=== PATIENT | female | born 1980 | race African-American/Black ===

== ENCOUNTER 2016-10-16 20:45 | Emergency (ER) | payer MEDICAID, OTHER ==
[~2016-10-16] VITALS: Ht 162.6 cm; Wt 95.5 kg
[~2016-10-16 20:45] MED LIST: CYCL-36 PO; IBUP800T23 PO; NAPR-576 PO
[2016-10-16 20:47] VITALS: BP 180/103; PULSE 106; RESP 16; TEMP 99.1; O2SAT 99
[2016-10-16 21:14] VITALS: BP 161/92; PULSE 98; RESP 22; TEMP 99.5; O2SAT 98
[2016-10-16 21:43] LABS: BACTERIA, URINE RARE /hpf; BLOOD, URINE TRACE (NEG); COMMENT (UR) CULT NOT INDICATED; CULTURE IF INDICATED CULT NOT INDICATED; GLUCOSE,URINE NEG (NEG); KETONE, URINE NEG (NEG); MUCUS URINE FEW /lpf (OCC); NITRITE,URINE NEG (NEG); SQUAMOUS EPITHELIAL CELL URINE 11 /hpf (0-5); URINE COLOR YELLOW (YELLW/STRAW)
[2016-10-16] MEDS ORDERED: KETOROLAC TROMETHAMINE 30 MG/ML (IVP) VIAL IVP ONE ×2 (21:45→23:15)
[2016-10-16] MEDS ORDERED: ONDANSETRON HCL 4 MG/2 ML VIAL IVP ONE (21:45)
[2016-10-16] MEDS ORDERED: MORPHINE SULFATE 4 MG/ML INJ IV PUSH ONE (21:45)
--- NOTE | 2016-10-16 22:02 | PD ---
HPI Chief Complaint: Flank/Kidney Pain Time Seen by Provider: 21:36 Travel History International Travel<30 days: No Contact w/Intl Traveler<30days: No Traveled to known affect area: No History of Present Illness HPI 36-year-old obese female here with complaint of left-sided flank pain since this morning. Pain radiates into the left abdomen. She denies any urinary symptoms or history of ureterolithiasis. States that she's had a history of gallstones and has had a cholecystectomy. She notes some nausea but no vomiting. Does not believe she could be . No abnormal vaginal bleeding or discharge. No fevers or chills. Bowel movements have been regular. PFSH Past Medical History Anemia: Yes Diminished Hearing: No Gastrointestinal Disorders: No Hypertension: Yes (WITH ) ?: Not LMP: 09/20/16 : 3 Para: 4 Tubal Ligation: Yes Past Surgical History Abdominal Surgery: Yes (gallbladder 1999) Section: Yes Cholecystectomy: Yes Gynecologic Surgery: Yes (c section 10/05/05) Social History Alcohol Use: Yes (OCC) Tobacco Use: No Substance Use: Yes (MARIJUANA OCC) Allergies-Medications (Allergen,Severity, Reaction): Coded Allergies: No Known Allergies (Verified , 10/16/16) Reported Meds & Prescriptions Reported Meds & Active Scripts Active Ibuprofen 800 Mg Tab 800 Mg PO Q6H PRN Flexeril (Cyclobenzaprine HCl) 10 Mg Tab 10 Mg PO Q8HR PRN Naproxen 500 Mg Tab 500 Mg PO BID 10 Days Review of Systems Except as stated in HPI: all other systems reviewed are Neg Physical Exam Narrative GENERAL: Well-appearing female in no acute distress SKIN: Warm and dry. HEAD: Normocephalic. EYES: No scleral icterus. No injection or drainage. ENT: Mucous membranes pink and moist. NECK: Supple CARDIOVASCULAR: Regular rate and rhythm. No murmur appreciated. RESPIRATORY: No accessory muscle use. Clear to auscultation. Breath sounds equal bilaterally. GASTROINTESTINAL: Abdomen soft, left mid and left upper quadrant abdominal pain without rebound or guarding, nondistended. No reproducible CVA tenderness. Obese MUSCULOSKELETAL: Normal gait NEUROLOGICAL: Awake and alert. Normal speech. PSYCHIATRIC: Appropriate mood and affect; insight and judgment normal. Data Data Last Documented VS Vital Signs Date Time Temp Pulse Resp B/P Pulse Ox O2 Delivery O2 Flow Rate FiO2 10/16/16 23:30 77 20 146/85 97 Room Air 10/16/16 21:14 99.5 Orders Urinalysis - C+S If Indicated (10/16/16 21:21) Complete Blood Count With Diff (10/16/16 21:38) Comprehensive Metabolic Panel (10/16/16 21:38) Lipase (10/16/16 21:38) Ct Abd/Pel W/O Iv Contrast (10/16/16 21:38) Iv Access Insert/Monitor (10/16/16 21:38) Oximetry (10/16/16 21:38) Morphine Inj (Morphine Inj) (10/16/16 21:45) Ondansetron Inj (Zofran Inj) (10/16/16 21:45) Sodium Chloride 0.9% Flush (Ns Flush) (10/16/16 21:45) Ketorolac Inj (Toradol Inj) (10/16/16 21:45) Ketorolac Inj (Toradol Inj) (10/16/16 23:15) Al-Mag Hy-Si 40-40-4 Mg/Ml Liq (Mag-Al P (10/16/16 23:15) Lidocaine 2% Viscous (Xylocaine 2% Visco (10/16/16 23:15) Labs Laboratory Tests Test 10/16/16 10/16/16 21:29 22:00 Urine Color YELLOW Urine Turbidity HAZY Urine pH 7.0 Urine Specific [place] 1.026 Urine Protein TRACE mg/dL Urine Glucose (UA) NEG mg/dL Urine Ketones NEG mg/dL Urine Occult Blood TRACE Urine Nitrite NEG Urine Bilirubin NEG Urine Urobilinogen 2.0 MG/DL Urine Leukocyte Esterase MOD Urine RBC 7 /hpf Urine WBC 7 /hpf Urine Squamous Epithelial 11 /hpf Cells Urine Bacteria RARE /hpf Urine Mucus FEW /lpf Microscopic Urinalysis Comment CULT NOT INDICATED White Blood Count 4.6 TH/MM3 Red Blood Count 3.94 MIL/MM3 Hemoglobin 11.6 GM/DL Hematocrit 35.1 % Mean Corpuscular Volume 88.9 FL Mean Corpuscular Hemoglobin 29.4 PG Mean Corpuscular Hemoglobin 33.1 % Concent Red Cell Distribution Width 13.5 % Platelet Count 214 TH/MM3 Mean Platelet Volume 8.4 FL Neutrophils (%) (Auto) 57.7 % Lymphocytes (%) (Auto) 25.9 % Monocytes (%) (Auto) 14.9 % Eosinophils (%) (Auto) 0.9 % Basophils (%) (Auto) 0.6 % Neutrophils # (Auto) 2.7 TH/MM3 Lymphocytes # (Auto) 1.2 TH/MM3 Monocytes # (Auto) 0.7 TH/MM3 Eosinophils # (Auto) 0.0 TH/MM3 Basophils # (Auto) 0.0 TH/MM3 CBC Comment DIFF FINAL Differential Comment Sodium Level 137 MEQ/L Potassium Level 4.4 MEQ/L Chloride Level 103 MEQ/L Carbon Dioxide Level 27.6 MEQ/L Anion Gap 6 MEQ/L Blood Urea Nitrogen 9 MG/DL Creatinine 0.81 MG/DL Estimat Glomerular Filtration 96 ML/MIN Rate Random Glucose 88 MG/DL Calcium Level 8.3 MG/DL Total Bilirubin 0.2 MG/DL Aspartate Amino Transf 18 U/L (AST/SGOT) Alanine Aminotransferase 19 U/L (ALT/SGPT) Alkaline Phosphatase 75 U/L Total Protein 8.1 GM/DL Albumin 3.2 GM/DL Lipase 96 U/L [facility] Medical Decision Making Medical Screen Exam Complete: Yes Emergency Medical Condition: Yes Medical Record Reviewed: Yes Differential Diagnosis 36-year-old female with abdominal pain 1 day, most notably in the left mid and left upper quadrant on exam. Differential includes gastritis, pancreatitis, UTI , ureterolithiasis, bowel obstruction and less likely diverticulitis. Narrative Course Patient placed on monitor, IV established and blood obtained. Patient given morphine, Zofran, Toradol. CBC, CMP, lipase, urinalysis and CT of the abdomen and pelvis notable for moderate leukocyte esterase with 7 red cells, 7 white cells and rare bacteria. CT abdomen and pelvis negative. We will treat for possible UTI while we are awaiting culture given her symptoms. Diagnosis Primary Impression: UTI (urinary tract infection) Qualified Code: N30.00 - Acute cystitis without hematuria Additional Impression: Left lateral abdominal pain Referrals: Primary Care Physician as needed Additional Instructions: Finish antibiotics prescribed. Follow-up with primary care provider if symptoms persist. Med/Other Pt SpecificInfo: Prescription(s) given Scripts Nitrofurantoin Monohydrate Macrocrystals (Macrobid)100 Mg Oql433 Mg PO BID 7 Days Ref 0 Prov:Casi Caicedo MD 10/16/16 Disposition: 01 DISCHARGE HOME Condition: Stable Casi Caicedo MD Oct 16, 2016 22:02
[2016-10-16 22:23] LABS: AUTOMATED NEUTROPHIL # 2.7 TH/MM3 (1.8-7.7); BASOPHIL % 0.6 % (0.0-2.0); EOSINOPHIL % 0.9 % (0.0-4.0); HEMATOCRIT 35.1 % (35.0-46.0); HEMO FLAGS DIFF FINAL; LYMPH % 25.9 % (9.0-44.0); LYMPHOCYTE # 1.2 TH/MM3 (1.0-4.8); MEAN CELL VOLUME 88.9 FL (80.0-100.0); MEAN CORPUSCULAR HEMOGLOBIN 29.4 PG (27.0-34.0); MEAN CORPUSCULAR HGB CONC 33.1 % (32.0-36.0); MONO % 14.9 % (0.0-8.0); NEUT % 57.7 % (16.0-70.0); PLATELET COUNT 214 TH/MM3 (150-450); RED BLOOD COUNT 3.94 MIL/MM3 (4.00-5.30); RED CELL DISTRIBUTION WIDTH 13.5 % (11.6-17.2); WHITE BLOOD COUNT 4.6 TH/MM3 (4.0-11.0)
[2016-10-16] MEDS: SODIUM CHLORIDE 0.9% FLUSH 5 ML FLUSH IVF PRN ×2 (22:27→23:28)
--- NOTE | 2016-10-16 22:49 | RADRPT ---
EXAM DATE/TIME: 10/16/2016 22:27 [facility] COMPARISON: No previous studies available for comparison. INDICATIONS : Left flank pain starting today. ORAL CONTRAST: No oral contrast ingested. RADIATION DOSE: 14.20 CTDIvol (mGy) MEDICAL HISTORY : Hypertension. SURGICAL HISTORY : Tubal ligation. section. Cholecystectomy. ENCOUNTER: Initial ACUITY: 1 day PAIN SCALE: 7/10 LOCATION: Left flank TECHNIQUE: Volumetric scanning of the abdomen and pelvis was performed. Using automated exposure control and ad justment of the mA and/or kV according to patient size, radiation dose was kept as low as reasonably achievable to obtain optimal diagnostic quality images. FINDINGS: The lung bases are clear. The portion of the liver and spleen identified are free of focal defects. Surgical clips are seen in the gallbladder fossa. Pancreas, spleen and adrenal glands are unremarkable. RIGHT KIDNEY: There are no calcifications in the right kidney. LEFT KIDNEY: There are no calcifications in the left kidney. In the pelvis, uterus and adnexal regions are unremarkable. There are phleboliths in the pelvis. Abdominal wall is intact. There is no free fluid or free air. CONCLUSION: 1. I do not see evidence for a renal stone. 2. There is no perinephric stranding. 3. Lack of intravenous contrast makes detection of pyelonephritis difficult. Billy Irvin MD FACR on October 16, 2016 at 22:42 Board Certified Radiologist. This report was verified electronically.
[2016-10-16 22:53] LABS: ALKALINE PHOSPHATASE 75 U/L (45-117); TOTAL BILIRUBIN ADULT 0.2 MG/DL (0.2-1.0)
[2016-10-16] MEDS ORDERED: LIDOCAINE VISCOUS 2% SOLN 15 ML UDC PO ONE (23:15)
[2016-10-16] MEDS ORDERED: ALUMINUM/MAGNESIUM/SIMETH 30 ML CUP PO ONE (23:15)
[2016-10-16 23:30] VITALS: BP 146/85; PULSE 77; RESP 20; O2SAT 97
[2016-10-16 23:46] LABS: ALT (GPT) 19 U/L (10-53); ANION GAP 6 MEQ/L (5-15); AST (GOT) 18 U/L (15-37); BICARBONATE 27.6 MEQ/L (21.0-32.0); BLOOD UREA NITROGEN 9 MG/DL (7-18); CHLORIDE 103 MEQ/L (98-107); GLOMERULAR FILTRATION RATE 96 ML/MIN (>89); POTASSIUM 4.4 MEQ/L (3.5-5.1); SODIUM (NA) 137 MEQ/L (136-145)
[2016-10-16] MEDS ORDERED: MACR100C2 PO (23:52)
== END 2016-10-17 00:08 | disposition home or self-care (01) ==
LOC: NEPE 20:45
DX: N30.00 Acute cystitis without hematuria (principal)
CPT/HCPCS: 74176; 80053; 81001; 83690; 85025; 96374; 96375; 96376; 99284; J1885; J2270; J2405

== ENCOUNTER 2016-12-19 14:16 | Emergency (ER) | payer OTHER, MEDICAID ==
[~2016-12-19] VITALS: Ht 165.1 cm; Wt 105.0 kg
[~2016-12-19 14:16] MED LIST changes: +MACR100C2 PO
[2016-12-19 14:20] VITALS: BP 138/77; PULSE 77; RESP 18; TEMP 98.1; O2SAT 99
--- NOTE | 2016-12-19 15:29 | PD ---
HPI . acute on chronic knee pain Chief Complaint: Pain: Acute or Chronic Time Seen by Provider: 15:29 Travel History International Travel<30 days: No Contact w/Intl Traveler<30days: No Traveled to known affect area: No History of Present Illness HPI 36 yr old female here with c/o left knee pain. Patient tells me this is new pain that she has not had before. She says the pain in all over her knee and is a 10/10 without radiation. She has been trying ibuprofen without relief, but has not taken tylenol. She says she is in between PCP and decided to come to ED as she never received a dx of what was going on with her knee. Upon reviewing her records, xray was done less than a year ago. This is acute on chronic knee pain. We discussed and she tells me that she was supposed to have an MRI done, but there was some mix up and she never had it done. She is hoping to get it done. She does have a new PCP but has to establish. She denies any trauma to the area. She denies any other symptoms. PFSH Past Medical History Anemia: Yes Diminished Hearing: No Gastrointestinal Disorders: No Hypertension: Yes Tetanus Vaccination: < 5 Years Influenza Vaccination: No ?: Not LMP: 12/2016 : 3 Para: 4 Tubal Ligation: Yes Past Surgical History Abdominal Surgery: Yes (gallbladder 2000) Section: Yes Cholecystectomy: Yes Gynecologic Surgery: Yes (c section 10/05/05) Social History Alcohol Use: Yes (OCC) Tobacco Use: No Substance Use: Yes (MARIJUANA OCC) Allergies-Medications (Allergen,Severity, Reaction): Coded Allergies: No Known Allergies (Verified , 12/19/16) Reported Meds & Prescriptions Reported Meds & Active Scripts Active No Active Prescriptions or Reported Medications Review of Systems General / Constitutional: No: Fever Eyes: No: Visual changes HENT: No: Headaches Cardiovascular: No: Chest Pain or Discomfort Respiratory: No: Shortness of Breath Gastrointestinal: No: Abdominal Pain Genitourinary: No: Dysuria Musculoskeletal: Positive: Pain (left knee pain) Skin: No Rash Neurologic: No: Weakness Psychiatric: No: Depression Endocrine: No: Polydipsia Hematologic/Lymphatic: No: Easy Bruising Physical Exam Narrative GENERAL: AAO x 3, no acute distress, Well-nourished, well-developed patient. SKIN: Warm and dry. No visible rashes or bruising. HEAD: Normocephalic and atraumatic. EYES: No scleral icterus. No injection or drainage. EOM intact, PERRLA ENT: No nasal drainage noted. Mucous membranes pink. Airway patent. NECK: Supple, trachea midline. No JVD. CARDIOVASCULAR: Regular rate and rhythm without murmurs, gallops, or rubs. RESPIRATORY: Breath sounds equal bilaterally. No accessory muscle use. No rhonchi or rales. GASTROINTESTINAL: Abdomen soft, non-tender, nondistended. EXTREMITIES: No cyanosis or edema. had to assess for edema due to body size, but both knees are symmetrical.NO effusion seen. No patellar dislocation. No joint laxity. Ext/flex is normal. BACK: Nontender without obvious deformity. No CVA tenderness. PSYCH: AAO x 3, normal affect. Data Data Last Documented VS Vital Signs Date Time Temp Pulse Resp B/P Pulse Ox O2 Delivery O2 Flow Rate FiO2 12/19/16 14:20 98.1 77 18 138/77 99 MDM Medical Decision Making Medical Screen Exam Complete: Yes Emergency Medical Condition: Yes Medical Record Reviewed: Yes Differential Diagnosis acute on chronic knee pain (left), internal derangement of the knee, less likely acute fracture or trauma Narrative Course 36 yr old female here with c/o left knee pain. Patient tells me this is new pain that she has not had before. She says the pain in all over her knee and is a 10/10 without radiation. She has been trying ibuprofen without relief, but has not taken tylenol. She says she is in between PCP and decided to come to ED as she never received a dx of what was going on with her knee. Upon reviewing her records, xray was done less than a year ago. This is acute on chronic knee pain. We discussed and she tells me that she was supposed to have an MRI done, but there was some mix up and she never had it done. She is hoping to get it done. She does have a new PCP but has to establish. She denies any trauma to the area. She denies any other symptoms. Patient seen and examined. There are no acute findings. I do not suspect dislocation or fracture. She is ambulatory. Discussed that she will need to f/u with PCP to get MRI and workup completed. Explained that she may need ortho referral, which will come from PCP. She was understanding and thanked me for her care. Diagnosis Primary Impression: Knee pain, left Qualified Code: M25.562 - Chronic pain of left knee Patient Instructions: General Instructions Additional Instructions: Please return to emergency department if your symptoms return or worsen. Follow up with your primary care provider. Continue using ibuprofen and Tylenol as needed for pain. You will need to follow-up with your primary care provider as you will need a referral to orthopedics. At that point they will determine further course of action for your care. Med/Other Pt SpecificInfo: No Change to Meds Scripts No Active Prescriptions or Reported Meds Disposition: 01 DISCHARGE HOME Condition: Stable Rosy Ravi Dec 19, 2016 15:29
== END 2016-12-19 16:02 | disposition home or self-care (01) ==
LOC: NEPB 14:16
DX: M25.562 Pain in left knee (principal); G89.29 Other chronic pain
CPT/HCPCS: 99283

== ENCOUNTER 2017-09-30 05:59 | Emergency (ER) | payer MEDICAID ==
[~2017-09-30] VITALS: Ht 162.6 cm; Wt 105.0 kg
[2017-09-30 06:01] VITALS: BP 206/88; PULSE 76; RESP 16; TEMP 98.1; O2SAT 97
[2017-09-30] MEDS ORDERED: TYLE325T PO (06:18)
[2017-09-30 06:19] VITALS: BP 185/125; PULSE 75; RESP 18; O2SAT 99
--- NOTE | 2017-09-30 06:26 | PD ---
HPI Chief Complaint: Bleeding Time Seen by Provider: 06:17 Travel History International Travel<30 days: No Contact w/Intl Traveler<30days: No Traveled to known affect area: No History of Present Illness HPI 37-year-old female complains of hematemesis and rectal bleeding. Patient states that she threw up twice this morning with bright red blood in the vomitus. Patient also noticed right red blood in his stool this morning. Patient states that she has intermittent, cramping and sharp pain for the past 2 days. Patient states the pain is diffuse over the abdomen. Patient denies any pain radiation. Patient states that she has vaginal bleeding for the past 2 weeks. Patient denies any headache. Patient denies any chest pain or shortness of breath. Patient denies any dysuria or frequency. Patient denies any back pain. Patient denies any history GI bleed in the past. PFSH Past Medical History Anemia: Yes Diminished Hearing: No Gastrointestinal Disorders: No Hypertension: Yes Kidney Stones: Yes ?: Unknown : 3 Para: 4 Tubal Ligation: Yes Past Surgical History Abdominal Surgery: Yes (gallbladder 1999) Section: Yes Cholecystectomy: Yes Gynecologic Surgery: Yes (c section 10/05/05) Social History Alcohol Use: Yes (OCC) Tobacco Use: No Substance Use: Yes (MARIJUANA OCC) Allergies-Medications (Allergen,Severity, Reaction): Coded Allergies: No Known Allergies (Verified Adverse Reaction, Unknown, 09/30/17) Reported Meds & Prescriptions Reported Meds & Active Scripts Active Reported Tylenol (Acetaminophen) 325 Mg Tab 325 Mg PO ONCE Review of Systems General / Constitutional: No: Fever Eyes: No: Visual changes HENT: No: Headaches Cardiovascular: No: Chest Pain or Discomfort Respiratory: No: Shortness of Breath Gastrointestinal: Positive: Abdominal Pain, Hematemesis, Hematochezia Genitourinary: No: Dysuria Musculoskeletal: No: Pain Skin: No Rash Neurologic: No: Weakness Psychiatric: No: Depression Endocrine: No: Polydipsia Hematologic/Lymphatic: No: Easy Bruising Physical Exam Narrative GENERAL: Well-nourished, well-developed patient. SKIN: Focused skin assessment warm/dry. HEAD: Normocephalic. EYES: No scleral icterus. No injection or drainage. NECK: Supple, trachea midline. No JVD or lymphadenopathy. CARDIOVASCULAR: Regular rate and rhythm without murmurs, gallops, or rubs. RESPIRATORY: Breath sounds equal bilaterally. No accessory muscle use. GASTROINTESTINAL: Abdomen soft, nondistended. Patient has mild tenderness on palpation mid abdomen. No rebound tenderness. No mass. Rectal exam Hemoccult positive. MUSCULOSKELETAL: No cyanosis, or edema. BACK: Nontender without obvious deformity. No CVA tenderness. Data Data Last Documented VS Vital Signs Date Time Temp Pulse Resp B/P (MAP) Pulse Ox O2 Delivery O2 Flow Rate FiO2 09/30/17 06:19 75 18 185/125 (145) 99 Room Air 09/30/17 06:01 98.1 Orders Orders Complete Blood Count With Diff (09/30/17 06:21) Comprehensive Metabolic Panel (09/30/17 06:21) Prothrombin Time / Inr (Pt) (09/30/17 06:21) Act Partial Throm Time (Ptt) (09/30/17 06:21) Lipase (09/30/17 06:21) Iv Access Insert/Monitor (09/30/17 06:21) Ecg Monitoring (09/30/17 06:21) Oximetry (09/30/17 06:21) Pantoprazole Inj (Protonix Inj) (09/30/17 06:30) Sodium Chloride 0.9% Flush (Ns Flush) (09/30/17 06:30) Ct Abd/Pel W Iv Contrast(Rout) (09/30/17 06:39) Ed Urine Pregnancytest Poc (09/30/17 06:41) MDM Medical Decision Making Medical Screen Exam Complete: Yes Emergency Medical Condition: Yes Interpretation(s) 6:41 AM. Urine test negative. Differential Diagnosis Differential diagnosis including upper GI bleed, lower GI bleed, varices bleed, gastric ulcer bleed, hemorrhoids, AV malformation, diverticulosis, diverticulitis. Narrative Course 37-year-old female with hematemesis and blood per rectum. Protonix 40 mg IV given. HemaPrompt Point of Care Internal Pos. & Neg. Controls: Passed Fecal Specimen Occult Blood: Positive Hans Ruiz MD Sep 30, 2017 06:26
[2017-09-30] MEDS ORDERED: PANTOPRAZOLE SODIUM 40 MG VIAL IVP ONE (06:30)
[2017-09-30] MEDS ORDERED: SODIUM CHLORIDE 0.9% FLUSH 10 ML FLUSH IV FLUSH PRN (06:30)
[2017-09-30 06:43] VITALS: O2SAT 97
[2017-09-30 07:10] LABS: AUTOMATED NEUTROPHIL # 2.1 TH/MM3 (1.8-7.7); BASOPHIL % 0.4 % (0.0-2.0); EOSINOPHIL # 0.1 TH/MM3 (0-0.4); EOSINOPHIL % 1.3 % (0.0-4.0); HEMATOCRIT 37.3 % (35.0-46.0); HEMOGLOBIN 12.2 GM/DL (11.6-15.3); LYMPH % 44.7 % (9.0-44.0); LYMPHOCYTE # 2.1 TH/MM3 (1.0-4.8); MEAN CELL VOLUME 89.6 FL (80.0-100.0); MEAN CORPUSCULAR HEMOGLOBIN 29.4 PG (27.0-34.0); MEAN CORPUSCULAR HGB CONC 32.8 % (32.0-36.0); MONO % 8.3 % (0.0-8.0); MONOCYTE # 0.4 TH/MM3 (0-0.9); NEUT % 45.3 % (16.0-70.0); PLATELET COUNT 293 TH/MM3 (150-450); RED BLOOD COUNT 4.16 MIL/MM3 (4.00-5.30); RED CELL DISTRIBUTION WIDTH 13.6 % (11.6-17.2); WHITE BLOOD COUNT 4.6 TH/MM3 (4.0-11.0)
[2017-09-30 07:14] LABS: PROTHROMBIN TIME - PATIENT 9.9 SEC (9.8-11.6)
[2017-09-30 07:21] LABS: ALBUMIN 3.3 GM/DL (3.4-5.0); ALT (GPT) 20 U/L (10-53); AST (GOT) 16 U/L (15-37); BICARBONATE 25.4 MEQ/L (21.0-32.0); BLOOD UREA NITROGEN 12 MG/DL (7-18); CALCIUM 8.9 MG/DL (8.5-10.1); CHLORIDE 105 MEQ/L (98-107); GLOMERULAR FILTRATION RATE 135 ML/MIN (>89); GLUCOSE,RANDOM 95 MG/DL (74-106); LIPASE 114 U/L (73-393); SODIUM (NA) 138 MEQ/L (136-145)
[2017-09-30 07:24] LABS: ALKALINE PHOSPHATASE 99 U/L (45-117); TOTAL BILIRUBIN ADULT 0.2 MG/DL (0.2-1.0); TOTAL PROTEIN 8.5 GM/DL (6.4-8.2)
[2017-09-30] MEDS ORDERED: IOHEXOL 350 MG/ML 10 ML VIAL (for RAD DIAG) IVCONTRAST ONE (07:42)
--- NOTE | 2017-09-30 07:49 | PD ---
Data Data Last Documented VS Vital Signs Date Time Temp Pulse Resp B/P (MAP) Pulse Ox O2 Delivery O2 Flow Rate FiO2 09/30/17 06:43 97 Room Air 09/30/17 06:19 75 18 09/30/17 06:01 98.1 Orders Orders Complete Blood Count With Diff (09/30/17 06:21) Comprehensive Metabolic Panel (09/30/17 06:21) Prothrombin Time / Inr (Pt) (09/30/17 06:21) Act Partial Throm Time (Ptt) (09/30/17 06:21) Lipase (09/30/17 06:21) Iv Access Insert/Monitor (09/30/17 06:21) Ecg Monitoring (09/30/17 06:21) Oximetry (09/30/17 06:21) Pantoprazole Inj (Protonix Inj) (09/30/17 06:30) Sodium Chloride 0.9% Flush (Ns Flush) (09/30/17 06:30) Ct Abd/Pel W Iv Contrast(Rout) (09/30/17 06:39) Ed Urine Pregnancytest Poc (09/30/17 06:41) Iohexol 350 Inj (Omnipaque 350 Inj) (09/30/17 07:42) Ed Discharge Order (09/30/17 08:00) Labs Laboratory Tests Test 09/30/17 06:30 White Blood Count 4.6 TH/MM3 Red Blood Count 4.16 MIL/MM3 Hemoglobin 12.2 GM/DL Hematocrit 37.3 % Mean Corpuscular Volume 89.6 FL Mean Corpuscular Hemoglobin 29.4 PG Mean Corpuscular Hemoglobin Concent 32.8 % Red Cell Distribution Width 13.6 % Platelet Count 293 TH/MM3 Mean Platelet Volume 8.0 FL Neutrophils (%) (Auto) 45.3 % Lymphocytes (%) (Auto) 44.7 % Monocytes (%) (Auto) 8.3 % Eosinophils (%) (Auto) 1.3 % Basophils (%) (Auto) 0.4 % Neutrophils # (Auto) 2.1 TH/MM3 Lymphocytes # (Auto) 2.1 TH/MM3 Monocytes # (Auto) 0.4 TH/MM3 Eosinophils # (Auto) 0.1 TH/MM3 Basophils # (Auto) 0.0 TH/MM3 CBC Comment DIFF FINAL Differential Comment Prothrombin Time 9.9 SEC Prothromb Time International Ratio 1.0 RATIO Activated Partial Thromboplast Time 25.6 SEC Blood Urea Nitrogen 12 MG/DL Creatinine 0.60 MG/DL Random Glucose 95 MG/DL Total Protein 8.5 GM/DL Albumin 3.3 GM/DL Calcium Level 8.9 MG/DL Alkaline Phosphatase 99 U/L Aspartate Amino Transf (AST/SGOT) 16 U/L Alanine Aminotransferase (ALT/SGPT) 20 U/L Total Bilirubin 0.2 MG/DL Sodium Level 138 MEQ/L Potassium Level 3.7 MEQ/L Chloride Level 105 MEQ/L Carbon Dioxide Level 25.4 MEQ/L Anion Gap 8 MEQ/L Estimat Glomerular Filtration Rate 135 ML/MIN Lipase 114 U/L MDM Medical Record Reviewed: Yes Supervised Visit with SUSHILA: No Narrative Course Please refer to the outgoing provider's note. CBC & BMP Diagram 09/30/17 06:30 Total Protein 8.5 H, Albumin 3.3 L, Calcium Level 8.9, Alkaline Phosphatase 99, Aspartate Amino Transf (AST/SGOT) 16, Alanine Aminotransferase (ALT/SGPT) 20, Total Bilirubin 0.2 Lipase is normal Last Impressions Abdomen/Pelvis CT 09/30/17 0639 Signed Impressions: Service Date/Time: Saturday, September 30, 2017 07:36 - CONCLUSION: 1. Mildly nonspecific, nonobstructive bowel gas pattern which may represent a mild ileus and/or gastroenteritis. 2. Mild to moderate hepatic steatosis. 3. Status post cholecystectomy. Hank Sarmiento MD The patient was reassessed at 8 AM and was found resting comfortably. Her belly was nontender at that point. We discussed at home care which with the patient was agreeable. Return precautions discussed. Diagnosis Primary Impression: Gastroenteritis Additional Impression: Hepatic steatosis Med/Other Pt SpecificInfo: Prescription(s) given Scripts Ondansetron Odt (Zofran Odt) 4 Mg Tab 4 MG SL Q8HR Y for Nausea/Vomiting, #10 TAB 0 Refills Prov: Jovanny Deutsch MD 09/30/17 Disposition: 01 DISCHARGE HOME Condition: Stable Jovanny Deutsch MD Sep 30, 2017 07:49
--- NOTE | 2017-09-30 07:51 | RADRPT ---
EXAM DATE/TIME: 09/30/2017 07:36 [facility] COMPARISON: CT ABDOMEN & PELVIS W/O CONTRAST, October 16, 2016, 22:27. INDICATIONS : Patient complains of hematemesis and blood in stool. IV CONTRAST: 100 cc Omnipaque 350 (iohexol) IV ORAL CONTRAST: No oral contrast ingested. RADIATION DOSE: 16.99 CTDIvol (mGy) MEDICAL HISTORY : Hypertension. Renal calculi. SURGICAL HISTORY : Cholecystectomy. Tubal ligation. ENCOUNTER: Initial ACUITY: 1 day PAIN SCALE: 7/10 LOCATION: abdomen TECHNIQUE: Volumetric scanning of the abdomen and pelvis was performed. Using automated exposure control and ad justment of the mA and/or kV according to patient size, radiation dose was kept as low as reasonably achievable to obtain optimal diagnostic quality images. DICOM format image data is available electro nically for review and comparison. FINDINGS: LOWER LUNGS: The visualized lower lungs are clear. LIVER: Homogeneous density without lesion. There is no dilation of the biliary tree. No calcified gallston es. There is mild to moderate hepatic steatosis. The patient is status post cholecystectomy. SPLEEN: Normal size without lesion. PANCREAS: Within normal limits. KIDNEYS: Normal in size and shape. There is no mass, stone or hydronephrosis. ADRENAL GLANDS: Within normal limits. VASCULAR: There is no aortic aneurysm. BOWEL/MESENTERY: No oral contrast was given limiting the sensitivity of the exam. There are several loops of nondilate d air-containing small bowel with multiple small air-fluid levels. Colon is unremarkable in appearanc e. There is no free intraperitoneal air or fluid. ABDOMINAL WALL: Within normal limits. RETROPERITONEUM: There is no lymphadenopathy. BLADDER: No wall thickening or mass. REPRODUCTIVE: Within normal limits. INGUINAL: There is no lymphadenopathy or hernia. MUSCULOSKELETAL: Within normal limits for patient age. CONCLUSION: 1. Mildly nonspecific, nonobstructive bowel gas pattern which may represent a mild ileus and/or gastr oenteritis. 2. Mild to moderate hepatic steatosis. 3. Status post cholecystectomy. Hank Sarmiento MD on September 30, 2017 at 7:47 Board Certified Radiologist. This report was verified electronically.
[2017-09-30] MEDS ORDERED: ZOFR4TAB3 SL (08:00)
== END 2017-09-30 08:47 | disposition home or self-care (01) ==
LOC: NEPC 05:59
DX: K52.9 Noninfective gastroenteritis and colitis, unspecified (principal); K76.0 Fatty (change of) liver, not elsewhere classified; D64.9 Anemia, unspecified; I10 Essential (primary) hypertension; Z87.442 Personal history of urinary calculi
CPT/HCPCS: 74177; 80053; 83690; 84703; 85025; 85610; 85730; 96374; 99285; C9113; Q9967

== ENCOUNTER 2018-03-12 16:28 | Emergency (ER) | payer MEDICAID ==
[~2018-03-12] VITALS: Ht 165.1 cm; Wt 95.5 kg
[~2018-03-12 16:28] MED LIST changes: -CYCL-36 PO; -IBUP800T23 PO; -MACR100C2 PO; -NAPR-576 PO; +TYLE325T PO; +ZOFR4TAB3 SL
[2018-03-12 16:29] VITALS: BP 170/84; PULSE 83; RESP 18; TEMP 98.2; O2SAT 100
--- NOTE | 2018-03-12 16:36 | PD ---
HPI Chief Complaint: Injury Time Seen by Provider: 16:35 Travel History International Travel<30 days: No Contact w/Intl Traveler<30days: No Traveled to known affect area: No [facility] Past Medical History Anemia: Yes Diminished Hearing: No Gastrointestinal Disorders: No Hypertension: Yes Kidney Stones: Yes ?: Not LMP: 02/28/18 : 3 Para: 4 Tubal Ligation: Yes Past Surgical History Abdominal Surgery: Yes (gallbladder 1999) Section: Yes Cholecystectomy: Yes Gynecologic Surgery: Yes (c section 10/05/05) Social History Alcohol Use: Yes (OCC) Tobacco Use: No Substance Use: Yes (MARIJUANA OCC) Allergies-Medications (Allergen,Severity, Reaction): Coded Allergies: No Known Allergies (Verified Adverse Reaction, Unknown, 09/30/17) Reported Meds & Prescriptions Reported Meds & Active Scripts Active Zofran Odt (Ondansetron Odt) 4 Mg Tab 4 Mg SL Q8HR PRN Reported Tylenol (Acetaminophen) 325 Mg Tab 325 Mg PO ONCE Data Data Last Documented VS Vital Signs Date Time Temp Pulse Resp B/P (MAP) Pulse Ox O2 Delivery O2 Flow Rate FiO2 03/12/18 16:29 98.2 83 18 170/84 (112) 100 Steffi Lundy Mar 12, 2018 16:36
--- NOTE | 2018-03-12 16:41 | PD ---
HPI Chief Complaint: Injury Time Seen by Provider: 16:35 Travel History International Travel<30 days: No Contact w/Intl Traveler<30days: No Traveled to known affect area: No History of Present Illness HPI 37-year-old female with no significant medical history presents emergency department for evaluation of right fifth fingernail pain. Patient states that she closed her nail on the door. It is a very long fingernail and it partially avulsed. It is now back in place. She reports moderate pain at the site. She reports no limitations range of motion of the finger itself. She has no other symptoms to report. History Past Medical Histgory LMP: 02/28/18 Social History Alcohol Use: Yes (OCC) Tobacco Use: No Allergies-Medications (Allergen,Severity, Reaction): Coded Allergies: No Known Allergies (Verified Adverse Reaction, Unknown, 09/30/17) Reported Meds & Prescriptions Reported Meds & Active Scripts Active Zofran Odt (Ondansetron Odt) 4 Mg Tab 4 Mg SL Q8HR PRN Reported Tylenol (Acetaminophen) 325 Mg Tab 325 Mg PO ONCE Review of Systems Except as stated in HPI: all other systems reviewed are Neg Physical Exam Narrative GENERAL: Well-nourished, well-developed female patient in no acute distress SKIN: Focused skin assessment warm/dry. The right fifth fingernail is minimally avulsed in the distal aspect of it. Nailbed remains intact. HEAD: Normocephalic. EYES: No scleral icterus. No injection or drainage. NECK: Supple, trachea midline. No JVD or lymphadenopathy. MUSCULOSKELETAL: No cyanosis, or edema. Patient has full flexion-extension of the affected digits. Cap refills within normal limits. Data Data Last Documented VS Vital Signs Date Time Temp Pulse Resp B/P (MAP) Pulse Ox O2 Delivery O2 Flow Rate FiO2 03/12/18 16:29 98.2 83 18 170/84 (112) 100 MDM Medical Screen Exam Complete: Yes Emergency Medical Condition: No Differential Diagnosis Partial nail avulsion Narrative Course 37-year-old female presents emergency department for evaluation of partial nail avulsion of the right fifth fingernail. The finger exam itself is within normal limits. The nails minimally avulsed at the distal aspect. I have counseled patient on care. At this time there are no urgent or emergent needs medical intervention identified. A medical screening exam was performed: At the time of evaluation the presenting medical condition was determined not to be of an emergent nature. The patient was given the option of receiving additional care, but declined. Patient was given options for additional community resources from which to obtain care. The Patient Has Been advised to seek medical attention for their presenting complaint. The patient has been advised to return to the ER at any time if an emergent condition develops. Primary Impression: Encounter for medical screening examination Condition: Stable Steffi Lundy Mar 12, 2018 16:41
== END 2018-03-12 16:50 | disposition left against medical advice (07) ==
LOC: NEPD 16:28
DX: M79.644 Pain in right finger(s) (principal); W23.0XXA Caught, crushed, jammed, or pinched between moving objects, initial encounter; Y99.0 Civilian activity done for income or pay
CPT/HCPCS: 99281